=== PATIENT | female | born 1945 | race Caucasian/White ===

== ENCOUNTER 2022-01-30 11:24 | Emergency (ER) | payer MEDICARE ==
[~2022-01-30 11:24] MED LIST: Iopamidol 370 76% 100 ML VIAL ONE
[2022-01-30 12:14] LABS: #Basophils 0.1 10x3/uL (0.0-0.2); #Eosinphils 0.1 10x3/uL (0.0-0.5); #Monocytes 0.7 10x3/uL (0.0-1.1); #Neutrophils 5.9 10x3/uL (1.5-8.4); %Basophils 0.7 % (0.0-2.0); %Eosinophils 0.7 % (0.0-6.0); %Lymphocytes 10.8 % (18.0-47.0); %Monocytes 9.3 % (0.0-10.0); %Neutrophils 77.6 % (40.0-75.0); Hemoglobin 13.5 g/dL (12.0-15.5); Mean Corpuscular Volume 94.1 fl (81.6-98.3); Mean Platelet Volume 9.9 fl (7.4-10.4); Platelet Count 230 10x3/uL (150-450); RBC Distribution Width 13.8 % (11.5-14.5); Red Blood Cell (RBC) Count 4.22 10x6/uL (3.90-5.03); White Blood Cell (WBC) Count 7.6 10x3/uL (3.5-10.5)
[2022-01-30 12:23] LABS: PTT 24.3 sec (22.0-33.0); Prothrombin Time 10.4 sec (9.5-12.1)
[2022-01-30 12:29] LABS: ALT (SGPT) 7 U/L (8-55); AST (SGOT) 13 U/L (5-34); Albumin 3.7 g/dL (3.4-4.8); Alkaline Phosphatase 64 U/L (40-110); Anion Gap 13 mmol/L (10-20); BUN (Urea Nitrogen) 16 mg/dL (9.8-20.1); Bilirubin, Total 0.9 mg/dL (0.2-1.2); Calc. Creatinine Clearance 0 mL/min (70-130); Calcium 9.3 mg/dL (7.8-10.44); Carbon Dioxide 27 mmol/L (23-31); Chloride 105 mmol/L (98-107); Estimated GFR 60; Globulin 3.3 g/dL (2.4-3.5); Glucose 98 mg/dL (83-110); Potassium 4.9 mmol/L (3.5-5.1); Sodium 140 mmol/L (136-145)
[2022-01-30] MEDS ORDERED: Morphine 4 MG/ML VIAL ONE (13:23)
[2022-01-30 13:54] LABS: Bilirubin Neg (Negative); Blood, Urine 10 (Negative); Glucose, Urine (Dipstick) Normal (Negative); Ketone, Urine Negative (Negative); Leukocyte 100 (Negative); Nitrite Negative (Negative); Protein, Urine (Dipstick) Negative (Neg-Trace); Specific Gravity, Urine 1.005 (1.002-1.036); Urobilinogen Normal mg/dL (Less than 2)
[2022-01-30 13:59] LABS: Clarity Clear (Clear)
[2022-01-30 14:02] LABS: Bacteria/HPF 4+ HPF (None Seen); RBC/HPF 0-3 HPF (0-3)
[2022-01-30] MEDS ORDERED: methylPREDNISolone Sod Succ/PF 125 MG/2 ML VIAL ONE (15:01)
[2022-01-30] MEDS ORDERED: diphenhydrAMINE 50 MG/ML VIAL ONE (15:02)
[2022-01-30] MEDS ORDERED: Famotidine/PF 20 mg/2ml Vial ONE (15:03)
[2022-01-30] MEDS ORDERED: cefTRIAXone\\ROCEPHIN 2 GM VIAL ONE (15:03)
== END 2022-01-30 17:29 | disposition home or self-care (01) ==
LOC: CSHERS 11:24
DX: S09.90XA Unspecified injury of head, initial encounter (principal); I10 Essential (primary) hypertension; R07.9 Chest pain, unspecified; J44.9 Chronic obstructive pulmonary disease, unspecified; F17.210 Nicotine dependence, cigarettes, uncomplicated; W18.39XA Other fall on same level, initial encounter
CPT/HCPCS: 36415; 70450; 71045; 71275; 72125; 72170; 74174; 80053; 81003; 81015; 85025; 85610; 85730; 93005; 96361; 96365; 96375; J0696; J1200; J2270; J2930; Q9967; S0028

== ENCOUNTER 2023-04-12 12:53 | Outpatient (CLI) | payer MEDICARE ==
[~2023-04-12 12:53] MED LIST changes: -Iopamidol 370 76% 100 ML VIAL ONE; +Magnevist 469MG/ML 20 ML VIAL ONE
== END 2023-04-12 12:54 | disposition home or self-care (01) ==
LOC: CSHMRI 12:53
PROVIDERS: ATTEND Surgery
DX: D32.9 Benign neoplasm of meninges, unspecified (principal); D32.0 Benign neoplasm of cerebral meninges
CPT/HCPCS: 70553; 82565

== ENCOUNTER 2023-05-17 12:06 | Outpatient (CLI) | payer MEDICARE | END 2023-05-17 12:07 | disposition home or self-care (01) | LOC: CSHMRI 12:06 | PROVIDERS: ATTEND Surgery | DX: M50.20 Other cervical disc displacement, unspecified cervical region (principal); M47.812 Spondylosis without myelopathy or radiculopathy, cervical region | CPT/HCPCS: 72050; 72141 ==

== ENCOUNTER 2023-05-31 08:32 | Outpatient (CLI) | payer MEDICARE | END 2023-05-31 08:33 | disposition home or self-care (01) | LOC: CSHULT 08:32 | PROVIDERS: ATTEND Internal Medicine Nephrology | DX: N18.30 Chronic kidney disease, stage 3 unspecified (principal); R93.421 Abnormal radiologic findings on diagnostic imaging of right kidney; R93.422 Abnormal radiologic findings on diagnostic imaging of left kidney | CPT/HCPCS: 76770; 93975 ==

== ENCOUNTER 2023-06-09 09:49 | Outpatient (CLI) | payer MEDICARE ==
[2023-06-09] MEDS ORDERED: Iopamidol 370 76% 100 ML VIAL ONE (10:25)
== END 2023-06-09 09:50 | disposition home or self-care (01) ==
LOC: CSHCT 09:49
PROVIDERS: ATTEND Surgery
DX: M48.02 Spinal stenosis, cervical region (principal); M47.12 Other spondylosis with myelopathy, cervical region
CPT/HCPCS: 70498

== ENCOUNTER 2025-02-20 21:16 | Emergency (ER) | payer MEDICARE | END 2025-02-20 22:11 | LOC: CSHERS 21:16 | DX: M54.2 Cervicalgia (principal); R51.9 Headache, unspecified; I10 Essential (primary) hypertension; J44.9 Chronic obstructive pulmonary disease, unspecified; F17.210 Nicotine dependence, cigarettes, uncomplicated; W19.XXXA Unspecified fall, initial encounter | CPT/HCPCS: 70450; 72125 ==